=== PATIENT | female | born 1970 | race Caucasian/White ===

== ENCOUNTER 2017-11-24 18:22 | Emergency (ER) | payer SELFPAY ==
[~2017-11-24] VITALS: Ht 160 cm; Wt 85.7 kg
[2017-11-24 18:24] VITALS: BP 123/77; Ht 160 cm; Wt 85.7 kg
== END 2017-11-24 21:08 | disposition left against medical advice (07) ==
LOC: ED 18:22
DX: Z53.21 Procedure and treatment not carried out due to patient leaving prior to being seen by health care provider (principal)